=== PATIENT | female | born 1960 | race Caucasian/White ===

== ENCOUNTER 2018-07-31 08:05 | Day surgery (SDC) | payer OTHER ==
[~2018-07-31] VITALS: Ht 157.5 cm; Wt 42.7 kg
[~2018-07-31 08:05] MED LIST: ALBU8HFA IH; AMLO-512 PO; FLUT16H NASAL; FLUT1AER6 PO; FentaNYL CITRATE-PF 100 MCG/2 ML VIAL ONE; IPRA4AER IH; MIDAZOLAM HCL 2 MG/2 ML VIAL ONE; MONT10TA21 PO; OMEP20 PO; SODIUM CHLORIDE 0.9% 1,000 ML IV ONE
[2018-07-31] MEDS ORDERED: LIDOCAINE 2% 30 ML JELLY TP ONE (08:06)
[2018-07-31] MEDS ORDERED: ALBUTEROL SULFATE 2.5 MG/0.5 ML NEB SOLUTION NEB ONE (08:06)
[2018-07-31] MEDS ORDERED: BENZOCAINE 20% 50 MCG/SPRAY 57 GM TP ONE (08:06)
[2018-07-31] MEDS ORDERED: SODIUM CHLORIDE 0.9% 1,000 ML IV ONE (08:37)
[2018-07-31] MEDS ORDERED: MethylPREDNISolone SOD SUCC 125 MG/2 ML VIAL IVP ONE (10:00)
[2018-07-31] MEDS ORDERED: MethylPREDNISolone SOD SUCC 125 MG/2 ML VIAL ONE (10:01)
[2018-07-31] MEDS ORDERED: OXYGEN THERAPY IH SCH (20:00)
== END 2018-07-31 11:10 | disposition home or self-care (01) ==
LOC: SURGERY 08:05
PROVIDERS: ATTEND Internal Medicine Critical Care Medicine
DX: J38.4 Edema of larynx (principal); B37.0 Candidal stomatitis; J43.9 Emphysema, unspecified; K21.9 Gastro-esophageal reflux disease without esophagitis; I10 Essential (primary) hypertension; I70.8 Atherosclerosis of other arteries; F12.90 Cannabis use, unspecified, uncomplicated; F17.210 Nicotine dependence, cigarettes, uncomplicated; Z87.01 Personal history of pneumonia (recurrent); Z87.09 Personal history of other diseases of the respiratory system; Z90.89 Acquired absence of other organs; Z79.899 Other long term (current) drug therapy; Z98.890 Other specified postprocedural states
CPT/HCPCS: 31623; 31624; 71045; 87015; 87070; 87205; 87206; 87220; 88108; 88312; J2250; J2930; J3010; J7030